=== PATIENT | female | born 1940 | race Caucasian/White ===

== ENCOUNTER 2017-01-20 19:08 | Outpatient (CLI) | payer MEDICARE, BC | END 2017-01-20 19:09 | disposition short-term general hospital (02) | LOC: EMS 19:08 | PROVIDERS: ATTEND Surgery | DX: R53.83 Other fatigue (principal); R41.0 Disorientation, unspecified; R50.9 Fever, unspecified | CPT/HCPCS: A0425; A0429 ==

== ENCOUNTER 2017-05-28 11:41 | Outpatient (CLI) | payer MEDICARE, BC | END 2017-05-28 11:42 | disposition short-term general hospital (02) | LOC: EMS 11:41 | PROVIDERS: ATTEND Surgery | DX: M79.89 Other specified soft tissue disorders (principal) | CPT/HCPCS: A0425; A0429 ==

== ENCOUNTER 2017-07-10 15:45 | Outpatient (CLI) | payer MEDICARE, BC | END 2017-07-10 15:46 | disposition short-term general hospital (02) | LOC: EMS 15:45 | PROVIDERS: ATTEND Surgery | DX: M79.662 Pain in left lower leg (principal) | CPT/HCPCS: A0425; A0429 ==

== ENCOUNTER 2017-11-19 17:39 | Outpatient (CLI) | payer MEDICARE, BC | END 2017-11-19 17:40 | disposition short-term general hospital (02) | LOC: EMS 17:39 | PROVIDERS: ATTEND Surgery | DX: R53.1 Weakness (principal) | CPT/HCPCS: A0425; A0429 ==

== ENCOUNTER 2018-10-26 17:42 | Outpatient (CLI) | payer MEDICARE, BC | END 2018-10-26 17:43 | disposition short-term general hospital (02) | LOC: EMS 17:42 | PROVIDERS: ATTEND Surgery | DX: M79.89 Other specified soft tissue disorders (principal); R53.1 Weakness | CPT/HCPCS: A0425; A0429 ==

== ENCOUNTER 2019-02-25 11:58 | Outpatient (CLI) | payer MEDICARE, BC | END 2019-02-25 11:59 | disposition short-term general hospital (02) | LOC: EMS 11:58 | PROVIDERS: ATTEND Surgery | DX: M79.89 Other specified soft tissue disorders (principal); M79.605 Pain in left leg; M79.604 Pain in right leg; R53.83 Other fatigue; R06.02 Shortness of breath | CPT/HCPCS: A0425; A0427 ==